=== PATIENT | male | born 1995 | race Caucasian/White ===

== ENCOUNTER → 2025-01-18 12:36 | Outpatient (REF) | payer OTHER, SELFPAY | LOC: HWRAD 12:36 | PROVIDERS: ATTENDING PHYSICIAN Physician Assistant; FAMILY PHYSICIAN Student in an Organized Health Care Education/Training Program; REFERRING PHYSICIAN Orthopaedic Surgery | DX: S92.145A Nondisplaced dome fracture of left talus, initial encounter for closed fracture (principal); S82.832A Other fracture of upper and lower end of left fibula, initial encounter for closed fracture | CPT/HCPCS: 73700 ==